=== PATIENT | female | born 1975 | race Caucasian/White ===

== ENCOUNTER → 2017-01-23 | Outpatient (CLI) | payer BC ==
[2017-01-23 08:44] LABS: HEMOGLOBIN 13.7 gm/dl (12.3-15.3); RED BLOOD COUNT 4.52 M/UL (4.00-5.10); WHITE BLOOD COUNT 6.9 K/UL (4.5-11.0)
[2017-01-23 09:06] LABS: BUN/CREATININE RATIO 18 (0-10)
== END ==
LOC: RAD 08:16
PROVIDERS: Internal Medicine
DX: J43.9 Emphysema, unspecified (principal); R73.01 Impaired fasting glucose; Z79.899 Other long term (current) drug therapy; L40.50 Arthropathic psoriasis, unspecified
CPT/HCPCS: 36415; 71020; 80053; 80061; 83036; 84439; 84443; 85025

== ENCOUNTER → 2020-11-11 | Outpatient (CLI) | payer BC ==
[~2020-11-11] MED LIST: ACID-PEP20 MG PO; FIBER500 MG PO; MELOXICAM15 MG PO; NORETHINDRONE0.35 MG PO; PROBIOTIC1 EAC1 PO
[2020-11-11 10:31] LABS: HEMOGLOBIN 14.2 gm/dl (12.3-15.3); RED BLOOD COUNT 4.72 M/UL (4.00-5.10); WHITE BLOOD COUNT 7.8 K/UL (4.5-11.0)
[2020-11-11 10:59] LABS: BUN/CREATININE RATIO 17 (0-10)
== END ==
LOC: LAB 10:00
PROVIDERS: Internal Medicine
DX: L40.0 Psoriasis vulgaris (principal); L40.1 Generalized pustular psoriasis; D64.9 Anemia, unspecified; F41.9 Anxiety disorder, unspecified; Z79.1 Long term (current) use of non-steroidal anti-inflammatories (NSAID); Z79.899 Other long term (current) drug therapy
CPT/HCPCS: 36415; 80053; 80076; 82465; 84478; 85025

== ENCOUNTER → 2020-12-11 | Outpatient (CLI) | payer BC | LOC: EXRD 11:05 | DX: N39.0 Urinary tract infection, site not specified (principal); N28.89 Other specified disorders of kidney and ureter | CPT/HCPCS: 76775 ==

== ENCOUNTER → 2020-12-23 | Outpatient (CLI) | payer BC | LOC: CT 08:00 | DX: R10.2 Pelvic and perineal pain (principal); N83.202 Unspecified ovarian cyst, left side; N83.201 Unspecified ovarian cyst, right side | CPT/HCPCS: Q9967 ==

== ENCOUNTER → 2021-01-21 | Outpatient (CLI) | payer BC ==
[2021-01-21 08:52] LABS: HEMOGLOBIN 12.9 gm/dl (12.3-15.3); RED BLOOD COUNT 4.17 M/UL (4.00-5.10); WHITE BLOOD COUNT 8.5 K/UL (4.5-11.0)
[2021-01-21 09:10] LABS: BUN/CREATININE RATIO 16 (0-10)
== END ==
LOC: LAB 08:30
PROVIDERS: Internal Medicine
DX: D72.829 Elevated white blood cell count, unspecified (principal); R73.01 Impaired fasting glucose; Z13.220 Encounter for screening for lipoid disorders; E55.9 Vitamin D deficiency, unspecified; Z79.899 Other long term (current) drug therapy
CPT/HCPCS: 36415; 80053; 80061; 83036; 84439; 84443; 85025

== ENCOUNTER → 2021-03-04 | Day surgery (SDC) | payer BC | END | disposition home or self-care (01) | LOC: OR 11:47 | DX: N39.0 Urinary tract infection, site not specified (principal); R31.0 Gross hematuria; Z88.0 Allergy status to penicillin; Z88.1 Allergy status to other antibiotic agents; Z82.49 Family history of ischemic heart disease and other diseases of the circulatory system; Z82.61 Family history of arthritis; Z83.3 Family history of diabetes mellitus; Z80.1 Family history of malignant neoplasm of trachea, bronchus and lung; Z82.3 Family history of stroke; Z87.891 Personal history of nicotine dependence | CPT/HCPCS: J7040 ==

== ENCOUNTER → 2021-06-01 | Outpatient (CLI) | payer BC ==
[2021-06-01 12:18] LABS: HEMOGLOBIN 13.6 gm/dl (12.3-15.3); RED BLOOD COUNT 4.51 M/UL (4.00-5.10); WHITE BLOOD COUNT 5.3 K/UL (4.5-11.0)
[2021-06-01 13:10] LABS: BUN/CREATININE RATIO 15 (0-10)
[2021-06-04 07:11] LABS: QUANTIFERON MITOGEN VALUE >10.00 IU/mL (.); QUANTIFERON TB1 AG VALUE 0.03 IU/mL (.); QUANTIFERON TB2 AG VALUE 0.03 IU/mL (.); QUANTIFERON-TB GOLD PLUS Negative (Negative)
== END ==
LOC: LAB 09:54
PROVIDERS: Dermatology
DX: J43.9 Emphysema, unspecified (principal); L40.0 Psoriasis vulgaris; L40.50 Arthropathic psoriasis, unspecified
CPT/HCPCS: 36415; 71046; 80053; 85027

== ENCOUNTER → 2022-04-06 | Outpatient (CLI) | payer BC | LOC: RAD 16:24 → LAB 16:24 | DX: R50.9 Fever, unspecified (principal) | CPT/HCPCS: 71046 ==